=== PATIENT | female | born 1930 | race Caucasian/White ===

== ENCOUNTER 2016-07-28 09:41 | Inpatient (IN) | payer MEDICARE ==
[2016-07-28] MEDS ORDERED: ALBUTEROL/IPRATROPIUM 2.5/0.5 MG 3 ML/EACH DOSE ONE (10:05)
[2016-07-28] MEDS ORDERED: LACTATED RINGERS 1,000 ML ONE (10:07)
[2016-07-28 10:15] LABS: ABSOLUTE NEUTROPHIL COUNT 2.9 K/mm3 (1.8-7.7); EOS % 0.8 % (0.9-2.9); HEMATOCRIT 34.3 % (37.0-47.0); HEMOGLOBIN 10.8 gm/l (12.0-16.0); IMM NEUT% 0.3 % (0-1); LYMPH # 0.4 (1.0-4.8); LYMPH % 11.7 % (15-45); MEAN CORPUSCULAR HEMOGLOBIN 31.5 pg (27.0-31.0); MEAN CORPUSCULAR HGB CONC 31.5 g/dl (33.0-37.0); MEAN PLATELET VOLUME 10.3 fl (7.4-10.4); MONO # 0.4 (0.0-0.8); MONO % 9.3 % (4-12); NEUT % 77.9 % (43-75); PLATELET COUNT 87 K/mm3 (130-400); RED CELL DISTRIBUTION WIDTH 12.6 % (11.5-14.5)
[2016-07-28 10:25] LABS: ALB/GLOB RATIO 1.2 (>1.0); ALBUMIN 3.5 gm/dL (3.5-5.7); CALCIUM 8.4 mg/dL (8.6-10.3)
--- NOTE | 2016-07-28 10:45 | RAD ---
Exam: Two-view chest COMPARISON: Exams dated from 06/21/2013-05/09/2016 INDICATION: Shortness of breath. FINDINGS: PA and lateral views of the chest were obtained. Postsurgical changes of median sternotomy and valve replacement are again appreciated. Cardiac silhouette is within normal limits and stable. Lungs are well-inflated. Mild elevation the right hemidiaphragm is noted and unchanged. There is chronic blunting of the right costophrenic angle, either related to scarring or chronic pleural effusion. There is no pleural effusion on the left. Bronchovascular markings are prominent diffusely, slightly increased since the 05/09/2016 exam but similar to that seen on the 06/28/2015 exam. IMPRESSION: Slight interval increase in bronchovascular markings since the most recent exam of 05/09/2016. This could reflect pulmonary venous hypertension or airway inflammation, however there is no dalton pulmonary edema or focal airspace disease. Chronic right basilar scarring.
[2016-07-28] MEDS ORDERED: METHYLPRED SOD SUCCINATE 125 MG VIAL ONE (11:02)
[2016-07-28] MEDS ORDERED: Potassium Chloride ORAL SOLN 20 MEQ/15 ML UDCUP ONE (11:17)
[2016-07-28] MEDS ORDERED: BLISTEX LIPSTICK 1 EACH TP PRN (13:05)
[2016-07-28] MEDS ORDERED: ACETAMINOPHEN 325 MG TABLET PO PRN (13:05)
[2016-07-28] MEDS ORDERED: MENTHOL/CETYLPYRD 1 EACH LOZENGE PO PRN (13:05)
[2016-07-28] MEDS ORDERED: SODIUM CHLORIDE 0.9% 100 ML IV PRN (13:05)
[2016-07-28] MEDS ORDERED: ALBUTEROL NEB 2.5 MG/3 ML VIAL.NEB NEB PRN (13:12)
[2016-07-28] MEDS ORDERED: FUROSEMIDE 40 MG/4 ML VIAL IV ONE ×2 (13:12→16:30)
[2016-07-28] MEDS ORDERED: ENOXAPARIN SODIUM 30 MG/0.3 ML SYRINGE SUB-Q SCH (13:15)
[2016-07-28 13:45] VITALS: BMI 25.0
--- NOTE | 2016-07-28 14:04 | HP ---
Bridget Lucero [id number] : 1930 DATE OF ADMISSION: 07/28/2016 IDENTIFICATION: Ms. Lucero is an 86-year-old followed by Dr. Gaines and also Dr. Daugherty. CHIEF COMPLAINT: Shortness of breath. HISTORY OF PRESENT ILLNESS: Ms. Lucero reports upper respiratory cold symptoms starting last Sunday. She had coughing and dyspnea, but seemed to be getting better then on got worse and has continued to have increasing dyspnea today. She went into the office where pulse oximetry was 80% on room air and she was referred to the emergency department. She does report coughing up some yellow sputum and feeling chills, but no documented fever. She does not have any chest pain. On evaluation in the emergency department she had wheezing as well as basilar crackles and elevated B-type natiuretic peptide and an x-ray with increase in bronchovascular markings. She was treated for chronic obstructive pulmonary disease exacerbation with nebulizer therapy and intravenous Solu-Medrol and referred to the hospitalist service. REVIEW OF SYSTEMS: HEENT: She did have an earache with the upper respiratory infection that has resolved. No headache or lightheadedness. Respiratory: As per history of present illness. Cardiac: No chest pain or palpations. Gastrointestinal: Chronic reflux no different than usual. No nausea , vomiting, diarrhea, constipation, hematochezia , or melana. Genitourinary: Chronic frequency no different than usual. No dysuria. Musculoskeletal: Generalized arthritis. Constitutional: Chills, no fever. PAST MEDICAL HISTORY: 1. Chronic obstructive pulmonary disease with chronic respiratory failure. She does have oxygen which she uses mostly at night, but sometimes during the day for dyspnea. 2. Chronic diastolic heart failure, last echocardiogram September 17, 2015 showed preserved ejection fraction, but elevated left ventricular filling pressure and recurrent aortic stenosis after previous tissue valve replacement. 3. Depression. 4. Hyperlipidemia. 5. Benign essential hypertension. 6. Idiopathic peripheral autonomic neuropathy. 7. Ischemic colitis. 8. Osteoporosis. 9. Vitamin D deficiency. 10. Chronic anemia, currently with pancytopenia. She is followed by hematology for that. 11. Allergic rhinitis. 12. Chronic kidney disease stage III. PAST SURGICAL HISTORY: 1. Aortic valve replacement with tissue prosthesis in 2004. 2. Bilateral total knee arthroplasties. ALLERGIES: REPORTED TO LEVOFLOXACIN AND SULFA DRUGS, SHE IS UNSURE OF THE REACTIONS, CLINIC NOTES INDICATE NAUSE AND VOMITING WITH THE SULFA AND HEADACHE AND DIZZINESS WITH LEVOFLOXACIN. MEDICATIONS: From clinic record: 1. Advair. 2. Furosemide. 3. Omeprazole. 4. Lialda. 5. Atorvastatin. 6. Albuterol. 7. Potassium. 8. Celexa. 9. Doxepin. 10. Asacol. 11. Hydrocodone. 12. Lutein. List will be updated by nursing and reviewed by myself later this afternoon. HABITS: She did smoke as a young woman, but quit 63 years ago. She drinks alcohol approximately three times a week 1 to 2 drinks when she drinks. SOCIAL HISTORY: She is , lives alone in [place] and is independent in her activities of daily living. She does drive and goes to [employer] or [address] to shop. She also goes out at least once a week bowling with friends. CODE STATUS: Resuscitation was discussed with the patient, she would not want resuscitation if she could not return to her independent living and given her age and underlying diseases that is extremely unlikely therefore, she will be do not resuscitate. FAMILY HISTORY: Positive for breast cancer in her mother and three aunts. Her father of chronic obstructive pulmonary disease. Her daughter has colon cancer. PHYSICAL EXAMINATION: GENERAL: This is a pleasant very elderly woman. She appears comfortable at this time, but does have an occasional cough. VITAL SIGNS: Temperature 98.3 degree Fahrenheit, pulse 91, blood pressure 134/72, respiratory rate 16, oxygen saturation 92% on 2 liters of oxygen by nasal cannula. HEENT: Pupils constricted, equal, round and reactive. Extraocular muscles intact. Bilateral arcus senilis. Oropharynx is moist. Dentition in moderate to poor condition. NECK: No jugular venous distention or bruits. CHEST: Moderate kyphosis. She has crackles at the bases right greater than left and slight expiratory wheezing throughout. HEART: Regular with 2 to 3/6 systolic murmur. ABDOMEN: Soft, nontender. Normal bowel tones. No organomegaly. EXTREMITIES: Trace dorsalis pedis pulses. No cyanosis, clubbing, or edema. NEUROLOGIC: Alert and oriented. No focal deficits. LABORATORY: White blood cell count is 3.8, hemoglobin and hematocrit 10.8 and 34.3, platelets 87. Lactate is 1.9. Sodium 136, potassium 3.2, chloride 102, CO2 26, BUN 14, creatinine 1.0, glucose 123. Troponin 0.02. B-type natiuretic peptide 447. Influenza A and B are negative. DIAGNOSTICS: Chest x-ray as above increased bronchovascular markings, which could reflect pulmonary venous hypertension or airway inflammation. EKG was not sent with the patient from the emergency room to med/surg and is not available for my review at this time. I will review it when available. ASSESSMENT: Ms. Lucero is an 86-year-old with chronic obstructive pulmonary disease and chronic diastolic heart failure. She appears to have exacerbation of both of those conditions at this time. She has underlying pancytopenia, acute hypokalemia, and chronic kidney disease stage III which is at baseline. PLAN: 1. Admit to med/surg. 2. Continue treatment for chronic obstructive pulmonary disease with nebulizer therapy and supplemental oxygen as needed. We will also continue steroids with 60 mg of prednisone by mouth daily starting tomorrow morning and oral azithromycin treatment. 3. For congestive heart failure exacerbation give her an extra dose of intravenous furosemide and follow ins and outs. 4. Potassium replacement. 5. Continue outpatient medications when verified. 6. Venous thromboembolism prophylaxis with mechanical means given her thrombocytopenia and chronic kidney disease, enoxaparin is contraindicated. 7. Do not resuscitate status. 8. Further care as indicated by clinical course. JOB: [id number]
[2016-07-28] MEDS: ALBUTEROL/IPRATROPIUM 2.5/0.5 MG 3 ML/EACH DOSE NEB SCH ×2 (15:43→20:26)
[2016-07-28] MEDS: AZITHROMYCIN 250 MG TABLET PO SCH (16:20)
[2016-07-28] MEDS ORDERED: POLYVINYL ALCOHOL 1.4% (TEARS) 300 GTTS/BOT SOLN.DROP OU PRN (20:23)
[2016-07-28] MEDS ORDERED: SUCRALFATE 1 G TABLET PO PRN (20:23)
[2016-07-28] MEDS ORDERED: POTASSIUM CHLORIDE 20 MEQ TAB.PRT.SR PO ONE (21:00)
[2016-07-28] MEDS ORDERED: POTASSIUM CHLORIDE 20 MEQ TAB.PRT.SR PO SCH (21:00)
[2016-07-28] MEDS: DOCUSATE SODIUM 100 MG CAPSULE PO SCH (21:33)
[2016-07-28] MEDS: FLUTICASONE/SALMETEROL 500/50 14 PUFFS/DISK IH SCH (21:33)
[2016-07-28] MEDS: MELATONIN 3 MG TABLET PO SCH (21:34)
[2016-07-29 06:47] LABS: CALCIUM 8.8 mg/dL (8.6-10.3)
[2016-07-29] MEDS: ALBUTEROL/IPRATROPIUM 2.5/0.5 MG 3 ML/EACH DOSE NEB SCH ×4 (08:28→19:21)
[2016-07-29] MEDS: FUROSEMIDE 80 MG TABLET PO SCH ×2 (08:45→16:20)
[2016-07-29] MEDS: AZITHROMYCIN 250 MG TABLET PO SCH (08:45)
[2016-07-29] MEDS: PREDNISONE 20 MG TABLET PO SCH (08:46)
[2016-07-29] MEDS: PANTOPRAZOLE 40 MG TABLET DR PO SCH (08:46)
[2016-07-29] MEDS: POTASSIUM CHLORIDE 20 MEQ TAB.PRT.SR PO SCH ×2 (08:46→16:20)
[2016-07-29] MEDS: CITALOPRAM HYDROBROMIDE 20 MG TABLET PO SCH (08:47)
[2016-07-29] MEDS: DOCUSATE SODIUM 100 MG CAPSULE PO SCH ×3 (08:47→21:26)
[2016-07-29] MEDS: ASPIRIN (ENTERIC COATED) 81 MG TABLET.EC PO SCH (08:47)
[2016-07-29] MEDS: TIOTROPIUM BROMIDE 18 MCG 5 CAP/INHALER IH SCH (08:48)
[2016-07-29] MEDS: FLUTICASONE/SALMETEROL 500/50 14 PUFFS/DISK IH SCH ×2 (08:49→21:26)
[2016-07-29] MEDS ORDERED: POTASSIUM CHLORIDE 20 MEQ TAB.PRT.SR PO SCH (09:00)
[2016-07-29] MEDS ORDERED: FUROSEMIDE 80 MG TABLET PO SCH (09:00)
--- NOTE | 2016-07-29 12:34 | PDOC43 ---
- Subjective Chief Complaint: dyspnea and weakness. Still c/o severe dyspnea with exertion. No chest pain. - Objective Vital Signs Temperature 97.8 F 07/29/16 11:28 Pulse Rate 95 07/29/16 11:28 Respiratory Rate 20 07/29/16 11:28 Blood Pressure 136/71 07/29/16 11:28 O2 Saturation by Pulse Oximetry 91 07/29/16 11:28 Oxygen Delivery Method Nasal Cannula Oxygen Flow Rate 1 Intake and Output 07/28/16 07/29/16 07/30/16 06:59 06:59 06:59 Intake Total 1200 Balance 1200 General: Alert, Oriented x3, Cooperative, Mild Distress HEENT: Mucous membr. moist/pink Lungs: Other (crackles bilateral R > L, no wheezes.) Cardiovascular: Regular Rate and Rhythm, Murmur (3/6 systolic) Abdomen: Soft, Tenderness, Normal Bowel Sounds, No Masses Extremities: Normal Pulses, No Edema Skin: Normal Color Neurological: Normal Speech Psych/Mental Status: Anxious Laboratory 07/29/16 05:30 07/29/16 05:30 Estimated GFR 53 L Current Medications: Current meds reviewed in EMR. - Problems: Assessment/Plan (1) CHF (congestive heart failure) Qualifiers: Congestive heart failure type: diastolic Congestive heart failure chronicity: acute on chronic Qualifier Code: (I50.33) Acute on chronic diastolic (congestive) heart failure Status: AcuteAssessment/Plan: Chronic diastolic heart failure may be progressing due to aortic stenosis. Continue current tx and check ECHO on Sunday. (2) CKD (chronic kidney disease) stage 3, GFR 30-59 ml/min Status: ChronicAssessment/Plan: stable, follow with diuresis. (3) COPD exacerbation Status: AcuteAssessment/Plan: Acute on chronic, treated with steroids and oral azithromycin, wheezing resolved. (4) HTN (hypertension), benign Status: ChronicAssessment/Plan: Well controlled (5) Hypokalemia Status: AcuteAssessment/Plan: improved, continue to replace (6) Aortic stenosis Qualifiers: Cardiac valve disease etiology: nonrheumatic Qualifier Code: (I35.0) Nonrheumatic aortic (valve) stenosis Status: ChronicAssessment/Plan: Status post tissue valve replacement with recurrent stenosis. Check ECHO and f/ u with cardiology. (7) Pancytopenia Status: ChronicAssessment/Plan: Followed by Hematology, at her baseline. VTE Prophylaxis: mechanical Disposition: will remain here at least till Sunday for ECHO.
[2016-07-29] MEDS: ROFLUMILAST 500 MCG PO SCH (14:46)
[2016-07-29] MEDS: MESALAMINE 1.2 GM PO SCH (14:47)
[2016-07-29] MEDS ORDERED: LOVASTATIN 20 MG TABLET PO SCH (20:00)
[2016-07-29] MEDS: MELATONIN 3 MG TABLET PO SCH (21:25)
[2016-07-29] MEDS: DOXEPIN HCL 10 MG CAPSULE PO SCH (21:26)
[2016-07-29] MEDS: GUAIFENESIN/CODEINE 100/10 MG (5 ML UDCUP) PO PRN (21:32)
[2016-07-30] MEDS: GUAIFENESIN/CODEINE 100/10 MG (5 ML UDCUP) PO PRN (04:40)
[2016-07-30 06:06] LABS: CALCIUM 9.1 mg/dL (8.6-10.3); MAGNESIUM 2.2 mg/dL (1.9-2.7)
[2016-07-30] MEDS: POTASSIUM CHLORIDE 20 MEQ TAB.PRT.SR PO SCH ×2 (08:13→16:42)
[2016-07-30] MEDS: ASPIRIN (ENTERIC COATED) 81 MG TABLET.EC PO SCH (08:13)
[2016-07-30] MEDS: PANTOPRAZOLE 40 MG TABLET DR PO SCH (08:13)
[2016-07-30] MEDS: DOCUSATE SODIUM 100 MG CAPSULE PO SCH ×2 (08:13→21:05)
[2016-07-30] MEDS: CITALOPRAM HYDROBROMIDE 20 MG TABLET PO SCH (08:14)
[2016-07-30] MEDS: AZITHROMYCIN 250 MG TABLET PO SCH (08:14)
[2016-07-30] MEDS: FUROSEMIDE 80 MG TABLET PO SCH (08:14)
[2016-07-30] MEDS: PREDNISONE 20 MG TABLET PO SCH (08:16)
[2016-07-30] MEDS: MESALAMINE 1.2 GM PO SCH (08:17)
[2016-07-30] MEDS: FLUTICASONE/SALMETEROL 500/50 14 PUFFS/DISK IH SCH ×2 (08:17→21:06)
[2016-07-30] MEDS: ROFLUMILAST 500 MCG PO SCH (08:17)
[2016-07-30] MEDS: TIOTROPIUM BROMIDE 18 MCG 5 CAP/INHALER IH SCH (08:19)
--- NOTE | 2016-07-30 09:42 | PDOC43 ---
- Subjective Chief Complaint: dyspnea and weakness. Feeling better but not back to baseline. Coughing continues. - Objective Vital Signs Temperature 98.4 F 07/30/16 07:20 Pulse Rate 74 07/30/16 07:20 Respiratory Rate 16 07/30/16 07:20 Blood Pressure 103/62 07/30/16 07:20 O2 Saturation by Pulse Oximetry 93 07/30/16 07:20 Oxygen Delivery Method Nasal Cannula Oxygen Flow Rate 1 Intake and Output 07/29/16 07/30/16 07/31/16 06:59 06:59 06:59 Intake Total 1200 2360 Output Total 2450 Balance 1200 -90 General: Alert, Oriented x3, Cooperative, Mild Distress HEENT: Mucous membr. moist/pink Lungs: Other (crackles at bases) Cardiovascular: Regular Rate and Rhythm, Murmur (3/6 systolic) Abdomen: Soft, Normal Bowel Sounds, No Tenderness, No Masses Extremities: Normal Pulses, No Edema Skin: Normal Color Neurological: Normal Speech Psych/Mental Status: Anxious (mild) Laboratory 07/30/16 05:15 07/30/16 05:15 Estimated GFR 53 L Current Medications: Current meds reviewed in EMR. - Problems: Assessment/Plan (1) CHF (congestive heart failure) Qualifiers: Congestive heart failure type: diastolic Congestive heart failure chronicity: acute on chronic Qualifier Code: (I50.33) Acute on chronic diastolic (congestive) heart failure Status: AcuteAssessment/Plan: Chronic diastolic heart failure may be progressing due to aortic stenosis. Increase furosemide and check ECHO on Sunday. (2) CKD (chronic kidney disease) stage 3, GFR 30-59 ml/min Status: ChronicAssessment/Plan: stable, follow with diuresis. (3) COPD exacerbation Status: AcuteAssessment/Plan: Acute on chronic, treated with steroids and oral azithromycin, wheezing resolved. (4) HTN (hypertension), benign Status: ChronicAssessment/Plan: Well controlled (5) Hypokalemia Status: AcuteAssessment/Plan: improved, continue to follow (6) Aortic stenosis Qualifiers: Cardiac valve disease etiology: nonrheumatic Qualifier Code: (I35.0) Nonrheumatic aortic (valve) stenosis Status: ChronicAssessment/Plan: Status post tissue valve replacement with recurrent stenosis. Check ECHO and f/ u with cardiology. (7) Pancytopenia Status: ChronicAssessment/Plan: Followed by Hematology, at her baseline. VTE Prophylaxis: mechanical Disposition: will remain here at least till Sunday for ECHO.
[2016-07-30] MEDS: ALBUTEROL/IPRATROPIUM 2.5/0.5 MG 3 ML/EACH DOSE NEB SCH ×4 (10:24→19:35)
[2016-07-30] MEDS ORDERED: FUROSEMIDE 20 MG TABLET PO ONE (10:32)
[2016-07-30] MEDS ORDERED: SODIUM CHLORIDE 0.9% FLUSH 10 ML ONE (11:37)
[2016-07-30] MEDS ORDERED: IV START KIT ONE (11:37)
[2016-07-30] MEDS: FUROSEMIDE 20 MG TABLET PO SCH (16:42)
[2016-07-30] MEDS: DOXEPIN HCL 10 MG CAPSULE PO SCH (21:06)
[2016-07-30] MEDS: MELATONIN 3 MG TABLET PO SCH (21:06)
[2016-07-31 07:39] VITALS: BP 118/62
[2016-07-31] MEDS: FUROSEMIDE 20 MG TABLET PO SCH (09:03)
[2016-07-31] MEDS: POTASSIUM CHLORIDE 20 MEQ TAB.PRT.SR PO SCH (09:04)
[2016-07-31] MEDS: PREDNISONE 20 MG TABLET PO SCH (09:04)
[2016-07-31] MEDS: CITALOPRAM HYDROBROMIDE 20 MG TABLET PO SCH (09:05)
[2016-07-31] MEDS: PANTOPRAZOLE 40 MG TABLET DR PO SCH (09:05)
[2016-07-31] MEDS: DOCUSATE SODIUM 100 MG CAPSULE PO SCH (09:05)
[2016-07-31] MEDS: FLUTICASONE/SALMETEROL 500/50 14 PUFFS/DISK IH SCH (09:05)
[2016-07-31] MEDS: ROFLUMILAST 500 MCG PO SCH (09:07)
[2016-07-31] MEDS: TIOTROPIUM BROMIDE 18 MCG 5 CAP/INHALER IH SCH (09:08)
[2016-07-31] MEDS: MESALAMINE 1.2 GM PO SCH (09:09)
[2016-07-31] MEDS: ASPIRIN (ENTERIC COATED) 81 MG TABLET.EC PO SCH (09:13)
[2016-07-31] MEDS: ALBUTEROL/IPRATROPIUM 2.5/0.5 MG 3 ML/EACH DOSE NEB SCH (10:48)
--- NOTE | 2016-07-31 17:00 | DS ---
ESTELLA VILLARREAL [id number] DATE OF ADMISSION: July 28, 2016 DATE OF DISCHARGE: July 31, 2016 DISCHARGE DIAGNOSES: 1. Chronic obstructive pulmonary disease exacerbation with acute bronchitis. 2. Acute on chronic diastolic congestive heart failure. 3. Severe aortic stenosis. 4. Mild pancytopenia, possibly viral etiology. 5. Mild hypokalemia. 6. Chronic stage 2 kidney disease. 7. Chronic essential hypertension. PROCEDURES: An echocardiogram performed on the day of discharge showing a preliminary reading of preserved ejection fraction of 65 to 70%. Stable aortic valve stenosis with a stenotic area of 0.91 cm2. Mean pressure gradient of 40.8 mmHg which is stable over the past year. SUMMARY OF ADMISSION AND HOSPITAL COURSE: The patient is an 86-year-old female with a history of chronic aortic stenosis as well as chronic obstructive pulmonary disease on nocturnal oxygen therapy who presented to the [facility] Emergency Department with a complaint of worsening coughing and dyspnea. She was found to be hypoxic with oxygen saturations of 80% on room air with diffuse wheezing and concern for bronchitis versus pulmonary venous hypertension on chest x-ray. She was admitted to the hospitalist service and was treated with oral Zithromax therapy and prednisone. She also was given increased doses of Lasix. Her initial potassium level was low at 3.2 which improved with potassium replacement. Her renal function remained stable during her stay with a creatinine of 1.0. Over the course of her hospital stay, she had gradual improvement. Influenza screening was negative. She remained afebrile and was felt to be medically stable for discharge on July 31, 2016. PHYSICAL EXAM: VITAL SIGNS: Vital signs at discharge showed a temperature of 97.7, pulse 88, blood pressure is 118/62, respirations 16, oxygen saturation 90 to 91% on room air. Body mass index 24.0, weight 53.8 kilograms. GENERAL: This is a thin elderly female in no acute distress. HEENT: Is unremarkable. LUNGS: Reveal some faint bibasilar crackles, otherwise clear. CARDIOVASCULAR: Exam reveals a regular rate and rhythm with a grade 2 systolic ejection murmur and a loud aortic valve click. EXTREMITIES: Lower extremities showed no peripheral edema. LABORATORY STUDIES: Chemistry profile showed a sodium of 143, potassium 3.6, BUN 31, creatinine 1.1. DISPOSITION: Home. ALLERGIES: ARE DOCUMENTED TO: 1. LEVAQUIN. 2. SULFA. CODE STATUS: DO NOT RESUSCITATE/DO NOT INTUBATE. DISCHARGE DIET: Low sodium diet. DISCHARGE MEDICATIONS: 1. Her Lasix dose is increased to 60 mg twice daily. 2. Potassium dose is increased to 40 mEq twice daily. 3. She will get one more dose of oral Zithromax 500 mg in the morning. 4. She was given a prednisone taper 40 mg daily for three days followed by 20 mg daily for three days and then 10 mg daily for four days. She will resume her previous home medications which include: 1. Carafate 2 g twice daily as needed for dyspepsia. 2. Prilosec 20 mg every morning. 3. Systane moisturizing eyedrops one drop in each eye every two hours as needed for dry eyes. 4. Roflumilast 500 mcg orally daily. 5. Spiriva 18 mcg inhaled daily. 6. Melatonin 6 mg orally at bedtime. 7. Folic acid 1 mg orally daily. 8. Mevacor 40 mg orally at bedtime. 9. Lutein 20 mg orally daily. 10. Advair Diskus inhaler 500/50 mcg one inhalation twice daily. 11. Enteric coated low-dose aspirin 81 mg daily. 12. Celexa 20 mg daily. 13. Vitamin B12 1000 mcg intramuscular once a month. 14. Albuterol HFA inhaler two puffs every four hours as needed for wheezing. 15. Mesalamine 1.2 g orally daily. 16. Doxepin 10 mg orally at bedtime. 17. Guaifenesin with codeine one teaspoon every six hours as needed for cough. REFERRALS: 1. She will follow up with her primary care provider, Dr. Moni Gaines, on August 10, 2016 at 1:30 p.m. Consideration should be given for followup CBC and followup basic metabolic panel to reassess her renal function and potassium with the increased dose of Lasix. 2. She will follow up with her yacht captain, Dr. Daugherty, on September 01, 2016 at 1:00 p.m. Cc: Sherwin King M.D.
== END 2016-07-31 12:35 | disposition home or self-care (01) | DRG 190 ==
LOC: ED 09:41 → MS 11:24
PROVIDERS: ADMIT Family Medicine; ATTEND Family Medicine
DX: J44.1 Chronic obstructive pulmonary disease with (acute) exacerbation (principal); I50.33 Acute on chronic diastolic (congestive) heart failure; I13.0 Hypertensive heart and chronic kidney disease with heart failure and stage 1 through stage 4 chronic kidney disease, or unspecified chronic kidney disease; D61.818 Other pancytopenia; J96.10 Chronic respiratory failure, unspecified whether with hypoxia or hypercapnia; E87.6 Hypokalemia; N18.2 Chronic kidney disease, stage 2 (mild); I35.0 Nonrheumatic aortic (valve) stenosis; F41.8 Other specified anxiety disorders; G90.9 Disorder of the autonomic nervous system, unspecified; M81.0 Age-related osteoporosis without current pathological fracture; E55.9 Vitamin D deficiency, unspecified; Z66 Do not resuscitate